=== PATIENT | female | born 1985 | race Caucasian/White ===

== ENCOUNTER → 2021-08-21 | Outpatient (REF) | payer OTHER ==
[2021-08-21 17:41] LABS: MEAN CORPUSCULAR HEMOGLOBIN 29.4 pg (27.0-33.0); MEAN CORPUSCULAR HGB CONC 33.3 g/dl (32.0-36.5); MEAN CORPUSCULAR VOLUME 88.2 fl (80.0-96.0); PLATELET COUNT, AUTOMATED 381 10^3/uL (150-450); RED BLOOD COUNT 4.42 10^6/uL (4.00-5.40); WHITE BLOOD COUNT 6.7 10^3/uL (4.0-10.0)
[2021-08-21 18:50] LABS: HCG, SERUM QUANTITATIVE 11096 MIU/ML; HEPATITIS B SURFACE ANTIGEN NEGATIVE (NEGATIVE)
[2021-08-21 19:02] LABS: HEPATITIS C VIRUS ABY INDEX 0.1 INDEX (<0.8); HIV 1&2 SCREEN CENTAUR NEGATIVE (NEGATIVE)
== END ==
LOC: M LAB REF 16:37
PROVIDERS: ATTEND Obstetrics & Gynecology
DX: Z36.89 Encounter for other specified antenatal screening (principal); O36.80X0 Pregnancy with inconclusive fetal viability, not applicable or unspecified

== ENCOUNTER → 2021-10-15 | Outpatient (CLI) | payer OTHER | LOC: M WHC 11:57 | PROVIDERS: ATTEND Obstetrics & Gynecology | DX: Z53.9 Procedure and treatment not carried out, unspecified reason (principal) ==

== ENCOUNTER → 2021-10-15 | Outpatient (CLI) | payer OTHER | LOC: M PLALAB 12:18 | PROVIDERS: ATTEND Obstetrics & Gynecology | DX: O09.521 Supervision of elderly multigravida, first trimester (principal); Z3A.00 Weeks of gestation of pregnancy not specified ==

== ENCOUNTER → 2021-12-04 | Outpatient (CLI) | payer OTHER | LOC: M WHC 09:41 | PROVIDERS: ATTEND Obstetrics & Gynecology | DX: O09.521 Supervision of elderly multigravida, first trimester (principal); Z3A.21 21 weeks gestation of pregnancy ==

== ENCOUNTER → 2021-12-24 | Outpatient (CLI) | payer OTHER | LOC: M WHC 08:14 | PROVIDERS: ATTEND Specialist | DX: Z36.89 Encounter for other specified antenatal screening (principal); Z3A.23 23 weeks gestation of pregnancy ==

== ENCOUNTER → 2022-01-08 | Outpatient (CLI) | payer OTHER ==
[2022-01-08 15:06] LABS: HEMATOCRIT 34.2 % (36.0-47.0); HEMOGLOBIN 11.2 g/dl (12.0-15.5); MEAN CORPUSCULAR HEMOGLOBIN 30.2 pg (27.0-33.0); MEAN CORPUSCULAR HGB CONC 32.7 g/dl (32.0-36.5); MEAN CORPUSCULAR VOLUME 92.2 fl (80.0-96.0); PLATELET COUNT, AUTOMATED 266 10^3/uL (150-450); RED BLOOD COUNT 3.71 10^6/uL (4.00-5.40); WHITE BLOOD COUNT 9.4 10^3/uL (4.0-10.0)
[2022-01-08 16:33] LABS: FERRITIN 23 NG/ML (8-252); GLUCOSE CHALLENGE TEST 1 HOUR 164 MG/DL (LESS THAN 140)
== END ==
LOC: M PLALAB 08:47
PROVIDERS: ATTEND Specialist
DX: Z36.89 Encounter for other specified antenatal screening (principal)
CPT/HCPCS: 36415; 82728; 82950; 85027; 86850; 86900; 86901; G0463

== ENCOUNTER 2022-04-18 14:02 | Inpatient (IN) | payer OTHER ==
[2022-04-18] VITALS (21 sets, daily range): BP systolic 110–144; BP diastolic 61–93
[~2022-04-18] VITALS: Ht 172.7 cm; Wt 76.3 kg
[2022-04-18] MEDS ORDERED: PRENTAB9 PO (14:37)
[2022-04-18] MEDS ORDERED: HOME MED LIST COMPLETE! XX SCH (14:40)
[2022-04-18] MEDS ORDERED: CARBOPROST TROMETHAMINE 250 MCG/ML AMP IM PRN (15:10)
[2022-04-18] MEDS ORDERED: METHYLERGONOVINE MALEATE 0.2 MG/ML VIAL (J2210) IM PRN (15:10)
[2022-04-18] MEDS ORDERED: LIDOCAINE 1% MDV 20ML VIAL INFIL PRN (15:10)
[2022-04-18] MEDS ORDERED: OXYTOCIN DRIP 30 UNITS in IV 1 EA IV PRN (15:10)
[2022-04-18] MEDS ORDERED: LACTATED RINGER'S 1000 ML IV PRN (15:10)
[2022-04-18] MEDS ORDERED: TRANEXAMIC ACID INJection 1,000 MG in NS 100 ML IV PRN (15:10)
[2022-04-18] MEDS ORDERED: LR 1,000 ML IV SCH ×2 (15:10→16:10)
[2022-04-18] MEDS ORDERED: OXYTOCIN DRIP 30 UNITS in IV 1 EA IV SCH (16:10)
[2022-04-18 17:00] LABS: HEMATOCRIT 36.3 % (36.0-47.0); HEMOGLOBIN 12.1 g/dl (12.0-15.5); MEAN CORPUSCULAR HEMOGLOBIN 29.3 pg (27.0-33.0); MEAN CORPUSCULAR HGB CONC 33.3 g/dl (32.0-36.5); MEAN CORPUSCULAR VOLUME 87.9 fl (80.0-96.0); PLATELET COUNT, AUTOMATED 268 10^3/uL (150-450); RED BLOOD COUNT 4.13 10^6/uL (4.00-5.40); WHITE BLOOD COUNT 8.1 10^3/uL (4.0-10.0)
[2022-04-18] MEDS ORDERED: ePHEDrine SULFATE 25 MG/5 ML(5MG/ML) SYRINGE IVP PRN (21:25)
[2022-04-18] MEDS ORDERED: ONDANSETRON 4MG 2ML VIAL IV PRN (21:25)
[2022-04-18] MEDS ORDERED: EPIDURAL/PCA KEYS XX PRN (21:25)
[2022-04-18] MEDS ORDERED: LR 500 ML IV PRN (21:25)
[2022-04-18] MEDS ORDERED: FENTANYL/ROPIVACAINE/NACL BAG 100 ML EPIDURAL SCH (21:25)
[2022-04-18] MEDS ORDERED: NALOXONE INJ 0.4MG/1ML VIAL IV PRN (21:25)
[2022-04-18] MEDS ORDERED: diphenhydrAMINE 50MG/ML VIAL IV PRN (21:25)
[2022-04-18 22:06] LABS: HIV 1&2 SCREEN CENTAUR NEGATIVE (NEGATIVE)
[2022-04-19] VITALS (8 sets, daily range): BP systolic 107–132; BP diastolic 62–77
[2022-04-19] MEDS ORDERED: DIBUCAINE 1% OINTMENT 30GM TOP PRN (01:25)
[2022-04-19] MEDS ORDERED: ACETAMINOPHEN 500 MG TAB PO PRN (01:25)
[2022-04-19] MEDS ORDERED: RHOGAM 300MCG (1500IU) INJ IM SCH (01:25)
[2022-04-19] MEDS ORDERED: MOM 30ML SUSPENSION UDC PO PRN (01:25)
[2022-04-19] MEDS ORDERED: DOCUSATE SODIUM 100MG CAPSULE PO PRN (01:25)
[2022-04-19] MEDS ORDERED: IBUPROFEN 800 MG TAB PO PRN (01:25)
[2022-04-19] MEDS: PRENATAL VITAMINS CHEWABLE TABLET PO SCH (09:32)
[2022-04-19] MEDS: DOCUSATE SODIUM 100MG CAPSULE PO SCH (09:32)
[2022-04-20] MEDS: DOCUSATE SODIUM 100MG CAPSULE PO SCH ×2 (01:39→09:52)
[2022-04-20 05:55] VITALS: BP 113/75
[2022-04-20] MEDS: PRENATAL VITAMINS CHEWABLE TABLET PO SCH (09:52)
[2022-04-21] MEDS ORDERED: MEASLES,MUMPS,RUBELLA VACCINE INJ (MMR-II) SC.IMMUN ONE (09:00)
== END 2022-04-20 13:05 | disposition home or self-care (01) | DRG 807 ==
LOC: M LDO 14:02 → M LDI 15:04 → M OBS 04-19 03:37
PROVIDERS: ADMIT Registered Nurse; ATTEND Obstetrics & Gynecology
PROC: 3E033VJ Introduction of Other Hormone into Peripheral Vein, Percutaneous Approach (ICD-10-PCS; 2022-04-18)
PROC: 10E0XZZ Delivery of Products of Conception, External Approach (ICD-10-PCS; principal; 2022-04-19)
PROC: 0HQ9XZZ Repair Perineum Skin, External Approach (ICD-10-PCS; 2022-04-19)
DX: O42.12 Full-term premature rupture of membranes, onset of labor more than 24 hours following rupture (principal); Z37.0 Single live birth; Z3A.40 40 weeks gestation of pregnancy; O48.0 Post-term pregnancy; O09.523 Supervision of elderly multigravida, third trimester; O69.1XX0 Labor and delivery complicated by cord around neck, with compression, not applicable or unspecified; O70.0 First degree perineal laceration during delivery